=== PATIENT | female | born 1960 ===

== ENCOUNTER 2017-11-27 19:22 | Emergency (ER) | payer OTHER ==
[2017-11-27] MEDS ORDERED: Lidocaine 1% w Epi 1:100,000 Inj ONE (19:57)
[2017-11-27 19:58] VITALS: RESP 16
--- NOTE | 2017-11-27 19:58 | ED PDOC ---
HPI: Female Pain Time Seen by Provider: 11/27/17 19:35 Chief Complaint (Nursing): Female Genitourinary History Per: Patient History/Exam Limitations: no limitations Onset/Duration Of Symptoms: Hrs Current Symptoms Are (Timing): Still Present Associated Symptoms: denies: Fever, Chills, Nausea Additional Complaint(s): No PMHx presenting with L sided vaginal abscess x 1 week, difficulty sitting down, painful. No fevers, chills. Had a cyst drained 1 year ago. Past Medical History Reviewed: Historical Data, Nursing Documentation, Vital Signs Vital Signs: Last Vital Signs Temp 98.3 F 11/27/17 19:31 Pulse 105 H 11/27/17 19:31 Resp 20 11/27/17 19:31 BP 135/88 11/27/17 19:31 Pulse Ox 105 H 11/27/17 19:31 - Medical History PMH: No Chronic Diseases - Family History Family History: States: No Known Family Hx - Home Medications Home Medications: Ambulatory Orders Medication Instructions Recorded Ibuprofen [Motrin Tab] 600 mg PO Q6 #30 tab 11/27/17 Sulfamethoxazole/Trimethoprim 1 tab PO BID 10 Days #20 tab 11/27/17 [Bactrim DS 800 mg-160 mg] - Allergies Allergies/Adverse Reactions: Allergies Allergy/AdvReac Type Severity Reaction Status Date / Time No Known Allergies Allergy Verified 11/27/17 19:31 Review of Systems ROS Statement: Except As Marked, All Systems Reviewed And Found Negative Physical Exam - Reviewed Nursing Documentation Reviewed: Yes Vital Signs Reviewed: Yes - Physical Exam Appears: Positive for: Well, Non-toxic, No Acute Distress Head Exam: Positive for: ATRAUMATIC, NORMAL INSPECTION, NORMOCEPHALIC Skin: Positive for: Normal Color, Warm, DRY Eye Exam: Positive for: EOMI, Normal appearance, PERRL ENT: Positive for: Normal ENT Inspection Neck: Positive for: Normal, Painless ROM Cardiovascular/Chest: Positive for: Regular Rate, Rhythm Respiratory: Positive for: CNT, Normal Breath Sounds Gastrointestinal/Abdominal: Positive for: Normal Exam, Soft Pelvic Exam: Negative for: External Exam Normal (L sided fluctuant Bartholin's Abscess measuring 5cm in diameter) Back: Positive for: Normal Inspection Extremity: Positive for: Normal ROM Neurologic/Psych: Positive for: Alert, Oriented - ECG O2 Sat by Pulse Oximetry: 105 Pulse Ox Interpretation: Other (100% on RA- Normal) Medical Decision Making Medical Decision MakinPM Patient with large Bartholin's abscess --Will get [facility] radio division officer to evaluate --Likely will need sanchez catheter 10PM --Dr. Wolfe successfully drained abscess and placed sanchez catheter --Patient felt immediate relief --Advised to take ABx for 10 days and followup with [facility] --Well appearing upon discharge Disposition - Clinical Impression Clinical Impression: Bartholin cyst - Disposition [facility] Disposition: Routine/Home Disposition Time: 22:05 Condition: STABLE Prescriptions: Ibuprofen [Motrin Tab] 600 mg PO Q6 #30 tab Sulfamethoxazole/Trimethoprim [Bactrim DS 800 mg-160 mg] 1 tab PO BID 10 Days #20 tab Instructions: Bartholin's Gland Cyst Forms: [facility] (Nepali) Print Language: DANISH
[2017-11-27] MEDS ORDERED: Povidone Iodine Topical 10% Sol ONE (21:33)
[2017-11-27 22:18] VITALS: BP 121/82; PULSE 97; TEMP 98.1; O2SAT 98
== END 2017-11-27 22:19 | disposition home or self-care (01) ==
LOC: H.ER 19:22
DX: N75.0 Cyst of Bartholin's gland (principal)